=== PATIENT | male | born 1995 | race Caucasian/White ===

== ENCOUNTER 2021-05-02 16:57 | Emergency (ER) | payer BC ==
[~2021-05-02 16:57] MED LIST: DOXYCYCLINE HY100 MG PO; PROTONIX 40 MG40 M1 PO
[2021-05-02 17:51] LABS: RED BLOOD COUNT 4.57 M/UL (4.20-5.50); WHITE BLOOD COUNT 11.4 K/UL (4.5-11.0)
[2021-05-02 17:55] LABS: BUN/CREATININE RATIO 10 (0-10)
[2021-05-02] MEDS ORDERED: MEDROL DOSEPAK 24 MG PO (18:58)
[2021-05-02] MEDS ORDERED: CLEOCIN HCL300 MG PO (18:58)
[2021-05-02] MEDS ORDERED: Magic Mouth Wash PO (18:58)
== END 2021-05-02 19:37 | disposition home or self-care (01) ==
LOC: ER1 16:57
PROVIDERS: Nurse Practitioner
DX: J02.9 Acute pharyngitis, unspecified (principal); R59.0 Localized enlarged lymph nodes; Z90.49 Acquired absence of other specified parts of digestive tract
CPT/HCPCS: 80053; 85025; 86403; 87081; 87880; 96372; 96374; 99283; J1100